=== PATIENT | female | born 1965 | race Caucasian/White ===

== ENCOUNTER → 2024-03-04 16:02 | Outpatient (REF) | payer OTHER, SELFPAY | LOC: RCS 16:02 | PROVIDERS: ATTENDING PHYSICIAN Anesthesiology; FAMILY PHYSICIAN Internal Medicine | DX: Z01.810 Encounter for preprocedural cardiovascular examination (principal) | CPT/HCPCS: 93005 ==

== ENCOUNTER → 2024-12-27 07:54 | Outpatient (REF) | payer OTHER, SELFPAY | LOC: RCS 07:54 | PROVIDERS: ATTENDING PHYSICIAN Internal Medicine Cardiovascular Disease; FAMILY PHYSICIAN Physician Assistant | DX: E66.01 Morbid (severe) obesity due to excess calories (principal); Z68.41 Body mass index [BMI] 40.0-44.9, adult; R94.31 Abnormal electrocardiogram [ECG] [EKG] | CPT/HCPCS: 93306 ==